=== PATIENT | female | born 1950 | race Caucasian/White ===

== ENCOUNTER → 2018-03-08 | Outpatient (CLI) | payer MEDICARE, OTHER ==
[~2018-03-08] MED LIST: BACL-19 PO; DICL100G19 TD; GABA-827 PO; HYDR25TA11 PO; LIDO700A5 TD; METH-356 PO; MIRT15TA4 PO; OXYC5TAB3 PO; TRAZ50TA18 PO; TRIA15CR3 TD; VITAMIN B12 PO
== END | disposition home or self-care (01) ==
LOC: CFH 10:35
PROVIDERS: ATTEND Nurse Practitioner
DX: Z12.2 Encounter for screening for malignant neoplasm of respiratory organs (principal); J84.10 Pulmonary fibrosis, unspecified; J44.9 Chronic obstructive pulmonary disease, unspecified; J96.11 Chronic respiratory failure with hypoxia; R91.8 Other nonspecific abnormal finding of lung field; F17.210 Nicotine dependence, cigarettes, uncomplicated
CPT/HCPCS: G0297

== ENCOUNTER 2018-06-25 12:22 | Inpatient (IN) | payer MEDICARE ==
[~2018-06-25] VITALS: Ht 160 cm; Wt 47.8 kg
[~2018-06-25 12:22] MED LIST changes: +TRAZ-136 PO; -TRAZ50TA18 PO
[2018-06-25 15:37] VITALS: BP 125/81
[2018-06-25] MEDS ORDERED: BUDE10.2 INH (15:59)
[2018-06-25] MEDS ORDERED: BISA5TAB PO (15:59)
[2018-06-25] MEDS ORDERED: TIOT18CA INH (15:59)
[2018-06-25] MEDS ORDERED: ALBUTEROL 0.083% NEB (15:59)
[2018-06-25] MEDS ORDERED: OXYcodone IR 5MG TABLET PO PRN (16:30)
[2018-06-25] MEDS ORDERED: ONDANSETRON ODT 4 MG PO PRN (16:30)
[2018-06-25] MEDS ORDERED: PLEASE ENTER HEIGHT AND WEIGHT MC SCH (16:30)
[2018-06-25] MEDS ORDERED: ONDANSETRON 2MG/ML, 2ML IVPush PRN (16:30)
[2018-06-25] MEDS ORDERED: PROM12.55 PO (16:45)
[2018-06-25] MEDS ORDERED: ALBU18HF IH (16:45)
[2018-06-25] MEDS ORDERED: triamcinolone 0.1% TP (16:45)
[2018-06-25] MEDS ORDERED: [UNRECOGNIZED DRUG - OTHER] TP (16:45)
[2018-06-25] MEDS ORDERED: ONDA4TAB12 PO (16:45)
[2018-06-25] MEDS ORDERED: NAPR-685 PO (16:45)
[2018-06-25] MEDS ORDERED: ALBUTEROL/IPRATROPIUM 2.5MG/0.5MG, 3 ML NPPB PRN (17:00)
[2018-06-25 17:20] LABS: BASOPHILS # (AUTO) 0.03 x10^3/uL (0-0.1); BASOPHILS % (AUTO) 1 % (0-1); EOSINOPHILS % (AUTO) 3 % (1-7); LYMPHOCYTES # (AUTO) 1.18 x10^3/uL (1-3.4); LYMPHOCYTES % (AUTO) 19 % (22-44); MD NO; MEAN CORPUSCULAR HEMOGLOBIN 35.8 pg (27.0-34.8); MEAN CORPUSCULAR HGB CONC 33.9 g/dL (32.4-35.8); MEAN CORPUSCULAR VOLUME 105.6 fL (80-100); MONOCYTES % (AUTO) 19 % (2-9); NEUTROPHILS # (AUTO) 3.65 x10^3/uL (1.8-6.8); NEUTROPHILS % (AUTO) 58 % (42-75); PLATELET COUNT 284 x10^3/uL (130-400); RED BLOOD COUNT 3.09 x10^6/uL (3.82-5.3); RED CELL DISTRIBUTION WIDTH 13.5 % (9.6-15.2)
[2018-06-25] MEDS: NICOTINE 7 MG/24 HR PATCH.TD24 TD SCH (17:20)
[2018-06-25] MEDS: OXYcodone IR 5MG TABLET PO PRN (17:28)
[2018-06-25 17:32] LABS: CHLORIDE 96 mmol/L (98-107)
[2018-06-25 17:33] LABS: ALANINE AMINOTRANSFERASE 27 U/L (12-78); ALBUMIN 2.9 g/dL (3.4-5.0); ANION GAP 8 mmol/L (5-15); CALCIUM 8.7 mg/dL (8.5-10.1); CREATININE 0.45 mg/dL (0.55-1.02)
[2018-06-25 17:35] LABS: ALKALINE PHOSPHATASE 80 U/L (45-117); BILIRUBIN,TOTAL 0.4 mg/dL (0.2-1.0); TOTAL PROTEIN 6.7 g/dL (6.4-8.2)
[2018-06-25] MEDS ORDERED: ALBUTEROL SULFATE 2.5 MG/3 ML NPPB PRN (18:30)
[2018-06-25] MEDS: morphine SULFATE 10 MG/ML, 1ML IVPush PRN ×2 (18:35→23:08)
[2018-06-25 20:00] VITALS: BP 120/74
[2018-06-25] MEDS: ALBUTEROL SULFATE 2.5 MG/3 ML NPPB SCH (21:00)
[2018-06-26 01:17] VITALS: BP 150/90
[2018-06-26] MEDS: OXYcodone IR 5MG TABLET PO PRN ×5 (01:42→18:40)
[2018-06-26] MEDS: morphine SULFATE 10 MG/ML, 1ML IVPush PRN ×5 (02:31→20:26)
[2018-06-26 05:28] LABS: BASOPHILS # (AUTO) 0.05 x10^3/uL (0-0.1); BASOPHILS % (AUTO) 1 % (0-1); EOSINOPHILS # (AUTO) 0.29 x10^3/uL (0-0.4); EOSINOPHILS % (AUTO) 4 % (1-7); LYMPHOCYTES # (AUTO) 1.49 x10^3/uL (1-3.4); LYMPHOCYTES % (AUTO) 19 % (22-44); MD NO; MEAN CORPUSCULAR HEMOGLOBIN 35.5 pg (27.0-34.8); MEAN CORPUSCULAR HGB CONC 33.9 g/dL (32.4-35.8); MEAN CORPUSCULAR VOLUME 104.9 fL (80-100); MEAN PLATELET VOLUME 8.8 fL (7.4-10.4); MONOCYTES # (AUTO) 1.36 x10^3/uL (0.2-0.8); MONOCYTES % (AUTO) 18 % (2-9); NEUTROPHILS # (AUTO) 4.56 x10^3/uL (1.8-6.8); NEUTROPHILS % (AUTO) 59 % (42-75); PLATELET COUNT 269 x10^3/uL (130-400); RED BLOOD COUNT 3.04 x10^6/uL (3.82-5.3); RED CELL DISTRIBUTION WIDTH 13.8 % (9.6-15.2)
[2018-06-26 05:31] LABS: ALANINE AMINOTRANSFERASE 26 U/L (12-78); ALBUMIN 2.9 g/dL (3.4-5.0); ANION GAP 5 mmol/L (5-15); CALCIUM 8.5 mg/dL (8.5-10.1); CHLORIDE 97 mmol/L (98-107)
[2018-06-26 05:34] LABS: ALKALINE PHOSPHATASE 72 U/L (45-117); BILIRUBIN,TOTAL 0.3 mg/dL (0.2-1.0); CREATININE 0.44 mg/dL (0.55-1.02); TOTAL PROTEIN 6.2 g/dL (6.4-8.2)
[2018-06-26 07:07] VITALS: BP 125/81
[2018-06-26] MEDS: ALBUTEROL SULFATE 2.5 MG/3 ML NPPB SCH ×3 (10:01→19:46)
[2018-06-26] MEDS ORDERED: OMNIPAQUE 350 MG/ML, 75ML BOTTLE ONE (12:20)
[2018-06-26 12:58] VITALS: BP 116/77
[2018-06-26] MEDS: NICOTINE 7 MG/24 HR PATCH.TD24 TD SCH (14:55)
[2018-06-26 20:00] VITALS: BP 132/87
[2018-06-26] MEDS: TRAZODONE 50MG TABLET PO PRN (20:26)
[2018-06-27] MEDS: morphine SULFATE 10 MG/ML, 1ML IVPush PRN ×6 (00:58→23:06)
[2018-06-27 02:39] VITALS: BP 118/77
[2018-06-27] MEDS: OXYcodone IR 5MG TABLET PO PRN ×5 (02:41→20:25)
[2018-06-27] MEDS: TRAZODONE 50MG TABLET PO PRN ×3 (02:41→23:06)
[2018-06-27 05:32] LABS: BASOPHILS # (AUTO) 0.04 x10^3/uL (0-0.1); BASOPHILS % (AUTO) 1 % (0-1); EOSINOPHILS # (AUTO) 0.29 x10^3/uL (0-0.4); EOSINOPHILS % (AUTO) 4 % (1-7); LYMPHOCYTES # (AUTO) 1.26 x10^3/uL (1-3.4); LYMPHOCYTES % (AUTO) 18 % (22-44); MD NO; MEAN CORPUSCULAR HEMOGLOBIN 35.1 pg (27.0-34.8); MEAN CORPUSCULAR HGB CONC 33.6 g/dL (32.4-35.8); MEAN CORPUSCULAR VOLUME 104.6 fL (80-100); MEAN PLATELET VOLUME 8.7 fL (7.4-10.4); MONOCYTES # (AUTO) 1.21 x10^3/uL (0.2-0.8); MONOCYTES % (AUTO) 18 % (2-9); NEUTROPHILS # (AUTO) 4.11 x10^3/uL (1.8-6.8); NEUTROPHILS % (AUTO) 60 % (42-75); PLATELET COUNT 265 x10^3/uL (130-400); RED BLOOD COUNT 2.94 x10^6/uL (3.82-5.3); RED CELL DISTRIBUTION WIDTH 13.6 % (9.6-15.2)
[2018-06-27 06:02] LABS: ALBUMIN 2.8 g/dL (3.4-5.0); CALCIUM 8.7 mg/dL (8.5-10.1); CHLORIDE 100 mmol/L (98-107)
[2018-06-27 06:05] LABS: ANION GAP 9 mmol/L (5-15); CREATININE 0.49 mg/dL (0.55-1.02)
[2018-06-27 06:49] VITALS: BP 126/77
[2018-06-27] MEDS: ALBUTEROL SULFATE 2.5 MG/3 ML NPPB SCH ×3 (07:10→20:39)
[2018-06-27 14:02] VITALS: BP 133/81
[2018-06-27] MEDS: NICOTINE 7 MG/24 HR PATCH.TD24 TD SCH (16:30)
[2018-06-27 20:00] VITALS: BP 139/84
[2018-06-28] MEDS: OXYcodone IR 5MG TABLET PO PRN ×4 (02:25→14:43)
[2018-06-28 02:26] VITALS: BP 134/81
[2018-06-28] MEDS: morphine SULFATE 10 MG/ML, 1ML IVPush PRN ×3 (04:34→12:45)
[2018-06-28 07:41] VITALS: BP 114/79
[2018-06-28] MEDS: ALBUTEROL SULFATE 2.5 MG/3 ML NPPB SCH ×2 (09:35→15:15)
[2018-06-28 12:53] VITALS: BP 122/80
== END 2018-06-28 17:02 | disposition home or self-care (01) | DRG 199 ==
LOC: 5SO 15:22 → DCLOUNGE 06-28 16:40
PROVIDERS: ADMIT Hospitalist; ATTEND Hospitalist
PROC: 0WP8X0Z Removal of Drainage Device from Chest Wall, External Approach (ICD-10-PCS; principal; 2018-06-28)
DX: J95.811 Postprocedural pneumothorax (principal); J96.01 Acute respiratory failure with hypoxia; E43 Unspecified severe protein-calorie malnutrition; Z68.1 Body mass index [BMI] 19.9 or less, adult; T79.7XXA Traumatic subcutaneous emphysema, initial encounter; D64.9 Anemia, unspecified; F17.200 Nicotine dependence, unspecified, uncomplicated; G89.29 Other chronic pain; G43.909 Migraine, unspecified, not intractable, without status migrainosus; M54.9 Dorsalgia, unspecified; J98.6 Disorders of diaphragm; G47.00 Insomnia, unspecified; J44.9 Chronic obstructive pulmonary disease, unspecified; Z79.891 Long term (current) use of opiate analgesic; Z82.3 Family history of stroke; Z82.49 Family history of ischemic heart disease and other diseases of the circulatory system; Z82.5 Family history of asthma and other chronic lower respiratory diseases; Z99.81 Dependence on supplemental oxygen
CPT/HCPCS: 36415; 71045; 71260; 80048; 80053; 82040; 85025; 94640; G0378; J7613; Q9967; J2270

== ENCOUNTER → 2018-07-13 | Outpatient (CLI) | payer MEDICARE ==
[~2018-07-13] MED LIST changes: +ALBU18HF IH; +ALBUTEROL 0.083% NEB; +BISA5TAB PO; +BUDE10.2 INH; +NAPR-685 PO; +ONDA4TAB12 PO; +PROM12.55 PO; +TIOT18CA INH; +[UNRECOGNIZED DRUG - OTHER] TP; +triamcinolone 0.1% TP
== END | disposition home or self-care (01) ==
LOC: PETCFH 07:30
PROVIDERS: ATTEND Internal Medicine
DX: R91.1 Solitary pulmonary nodule (principal); R59.0 Localized enlarged lymph nodes; J44.9 Chronic obstructive pulmonary disease, unspecified
CPT/HCPCS: 78815; A9552

== ENCOUNTER 2018-08-03 07:49 | Day surgery (SDC) | payer MEDICARE ==
[~2018-08-03] VITALS: Ht 157.5 cm; Wt 43.9 kg
[~2018-08-03 07:49] MED LIST changes: +ALBUTEROL/IPRATROPIUM 2.5MG/0.5MG, 3 ML NPPB PRN; +EPHEDRINE 50 MG/ML, 1ML IM PRN; +EPHEDRINE 50 MG/ML, 1ML IVPush PRN; +FENTANYL PF 100 MCG/2ML IV PRN; +HYDROcodone/APAP 7.5-325MG/15ML UDC PO PRN; +HYDROmorphone 2 MG/ML, 1ML IVPush PRN; +KETOROLAC 30 MG/1 ML IV PRN; +LABETALOL 5MG/ML, 20ML IV PRN; +MEPERIDINE/PF 25MG/0.5ML IVPush PRN; -METH-356 PO; +METH10TA2 PO; +METOCLOPRAMIDE 5 MG/ML, 2ML IV PRN; +MIDAZOLAM 1 MG/ML, 2ML IV PRN; +NAPR500T8 PO; +ONDANSETRON 2MG/ML, 2ML IV PRN; +Oxygen INH; -TRAZ-136 PO; +TRAZ50TA66 PO
[2018-08-03] MEDS ORDERED: LACTATED RINGERS 1,000 ML IV SCH (08:37)
[2018-08-03] MEDS ORDERED: MIDAZOLAM 1 MG/ML, 2ML ONE (08:48)
[2018-08-03] MEDS ORDERED: ROCURONIUM 10MG/ML,5ML ONE (08:48)
[2018-08-03] MEDS ORDERED: LIDOCAINE 2%, 10ML ONE (08:48)
[2018-08-03] MEDS ORDERED: PROPOFOL 10 MG/ML, 20ML ONE (08:48)
[2018-08-03] MEDS ORDERED: GLYCOPYRROLATE 0.2MG/1ML, 5ML ONE (08:48)
[2018-08-03] MEDS ORDERED: DEXAMETHASONE 4 MG/ML, 1ML ONE (08:48)
[2018-08-03] MEDS ORDERED: FENTANYL PF 250 MCG/5ML ONE (08:49)
[2018-08-03] MEDS ORDERED: LIDOCAINE-MPF 2% ,5ML ONE (08:56)
[2018-08-03 09:02] VITALS: BP 108/70
== END 2018-08-03 13:00 | disposition home or self-care (01) ==
LOC: OUT 07:49
PROVIDERS: ATTEND Internal Medicine Critical Care Medicine
DX: C96.9 Malignant neoplasm of lymphoid, hematopoietic and related tissue, unspecified (principal); J44.9 Chronic obstructive pulmonary disease, unspecified; J96.11 Chronic respiratory failure with hypoxia; Z79.899 Other long term (current) drug therapy; Z88.8 Allergy status to other drugs, medicaments and biological substances; Z72.0 Tobacco use
CPT/HCPCS: 31652; 88172; 88173; 88305; 88341; 88342; 93005; J1100; J2001; J2250; J2704; J3010; J3490; J7120; 31625; 31629

== ENCOUNTER → 2018-08-18 | Outpatient (CLI) | payer MEDICARE ==
[~2018-08-18] MED LIST changes: -ALBUTEROL/IPRATROPIUM 2.5MG/0.5MG, 3 ML NPPB PRN; -EPHEDRINE 50 MG/ML, 1ML IM PRN; -EPHEDRINE 50 MG/ML, 1ML IVPush PRN; -FENTANYL PF 100 MCG/2ML IV PRN; +GADOBUTROL 7.5 MMOL/7.5 ML PFS ONE; -HYDROcodone/APAP 7.5-325MG/15ML UDC PO PRN; -HYDROmorphone 2 MG/ML, 1ML IVPush PRN; -KETOROLAC 30 MG/1 ML IV PRN; -LABETALOL 5MG/ML, 20ML IV PRN; -MEPERIDINE/PF 25MG/0.5ML IVPush PRN; +METH-356 PO; -METH10TA2 PO; -METOCLOPRAMIDE 5 MG/ML, 2ML IV PRN; -MIDAZOLAM 1 MG/ML, 2ML IV PRN; -ONDANSETRON 2MG/ML, 2ML IV PRN
== END | disposition home or self-care (01) ==
LOC: RAD 08:50
PROVIDERS: ATTEND Internal Medicine
DX: H70.93 Unspecified mastoiditis, bilateral (principal); R90.82 White matter disease, unspecified
CPT/HCPCS: 70553; A9585

== ENCOUNTER → 2018-10-10 | Outpatient (CLI) | payer MEDICARE ==
[~2018-10-10] MED LIST changes: -GADOBUTROL 7.5 MMOL/7.5 ML PFS ONE; -METH-356 PO; +METH10TA2 PO
== END | disposition home or self-care (01) ==
LOC: CFH 10:43
PROVIDERS: ATTEND Radiology Radiation Oncology
DX: M41.84 Other forms of scoliosis, thoracic region (principal); R06.02 Shortness of breath; R05 Cough; Z85.118 Personal history of other malignant neoplasm of bronchus and lung
CPT/HCPCS: 71046

== ENCOUNTER 2018-11-11 07:16 | Outpatient (CLI) | payer MEDICARE | END 2018-11-11 23:59 | disposition home or self-care (01) | LOC: ROC 07:16 → EDSTATUS 08-22 17:20 | PROVIDERS: ATTEND Radiology Radiation Oncology | DX: Z08 Encounter for follow-up examination after completed treatment for malignant neoplasm (principal); C34.11 Malignant neoplasm of upper lobe, right bronchus or lung | CPT/HCPCS: 99212; G0463 ==

== ENCOUNTER → 2018-11-21 | Outpatient (CLI) | payer MEDICARE ==
[~2018-11-21] MED LIST changes: +OMNIPAQUE 350 MG/ML, 75ML BOTTLE ONE
== END | disposition home or self-care (01) ==
LOC: CFH 12:24
PROVIDERS: ATTEND Internal Medicine Hematology & Oncology
DX: J43.2 Centrilobular emphysema (principal); C34.11 Malignant neoplasm of upper lobe, right bronchus or lung; Z87.891 Personal history of nicotine dependence
CPT/HCPCS: 71260; Q9967

== ENCOUNTER → 2018-12-26 | Outpatient (CLI) | payer MEDICARE ==
[~2018-12-26] MED LIST changes: -OMNIPAQUE 350 MG/ML, 75ML BOTTLE ONE; -TRIA15CR3 TD; +TRIA15CR61 TD
== END | disposition home or self-care (01) ==
LOC: EDSTATUS 11-22 14:55 → ROC 08:13
PROVIDERS: ATTEND Radiology Radiation Oncology
DX: C34.91 Malignant neoplasm of unspecified part of right bronchus or lung (principal); C77.1 Secondary and unspecified malignant neoplasm of intrathoracic lymph nodes; J43.9 Emphysema, unspecified; R91.1 Solitary pulmonary nodule; Z79.899 Other long term (current) drug therapy; Z87.891 Personal history of nicotine dependence; Z92.3 Personal history of irradiation
CPT/HCPCS: 99212; G0463

== ENCOUNTER → 2019-02-17 | Outpatient (CLI) | payer MEDICARE ==
[~2019-02-17] MED LIST changes: +OXYC10TA47 PO
== END | disposition home or self-care (01) ==
LOC: CFH 09:59
PROVIDERS: ATTEND Internal Medicine
DX: D02.20 Carcinoma in situ of unspecified bronchus and lung (principal)
CPT/HCPCS: 71250

== ENCOUNTER 2019-03-27 08:29 | Outpatient (CLI) | payer MEDICARE | END 2019-03-27 23:59 | disposition home or self-care (01) | LOC: ROC 08:29 | PROVIDERS: ATTEND Radiology Radiation Oncology | DX: C34.11 Malignant neoplasm of upper lobe, right bronchus or lung (principal); J44.9 Chronic obstructive pulmonary disease, unspecified | CPT/HCPCS: 99213; G0463 ==

== ENCOUNTER → 2019-06-20 | Outpatient (CLI) | payer MEDICARE ==
[~2019-06-20] VITALS: Ht 160 cm; Wt 42.4 kg
[~2019-06-20] MED LIST changes: +DURVALUMAB IV ONE; +FILTER MICRON IV ONE; +HYDR-826 PO; -HYDR25TA11 PO; +MIRT-34 PO; -MIRT15TA4 PO; -PROM12.55 PO; +PROM12.57 PO; +SODIUM CHLORIDE 0.9% 100 ML IV ONE; +SODIUM CHLORIDE 0.9% IV ONE
[2019-06-20 11:14] VITALS: BP 102/63
== END | disposition home or self-care (01) ==
LOC: INFUSION 08:00
PROVIDERS: ATTEND Internal Medicine Hematology & Oncology
DX: Z51.11 Encounter for antineoplastic chemotherapy (principal); C34.11 Malignant neoplasm of upper lobe, right bronchus or lung; R94.6 Abnormal results of thyroid function studies; I25.10 Atherosclerotic heart disease of native coronary artery without angina pectoris; J43.9 Emphysema, unspecified
CPT/HCPCS: 36415; 84443; 96413; J7050; J9173

== ENCOUNTER → 2019-07-04 | Outpatient (CLI) | payer MEDICARE ==
[~2019-07-04] VITALS: Ht 160 cm; Wt 42.8 kg
[~2019-07-04] MED LIST changes: +FILTER 0.22 MICRON IV ONE; -FILTER MICRON IV ONE; -SODIUM CHLORIDE 0.9% 100 ML IV ONE; +SODIUM CHLORIDE 0.9% 100 ML IV SCH
[2019-07-04 12:25] VITALS: BP 107/69
== END | disposition home or self-care (01) ==
LOC: INFUSION 10:12
PROVIDERS: ATTEND Internal Medicine Hematology & Oncology
DX: Z51.11 Encounter for antineoplastic chemotherapy (principal); C34.11 Malignant neoplasm of upper lobe, right bronchus or lung; J43.9 Emphysema, unspecified; I25.10 Atherosclerotic heart disease of native coronary artery without angina pectoris; R94.6 Abnormal results of thyroid function studies
CPT/HCPCS: 36415; 36591; 84443; 96413; J7050; J9173

== ENCOUNTER 2019-07-08 06:46 | Emergency (ER) | payer MEDICARE ==
[~2019-07-08] VITALS: Ht 160 cm; Wt 44.2 kg
[~2019-07-08 06:46] MED LIST changes: -DURVALUMAB IV ONE; -FILTER 0.22 MICRON IV ONE; -SODIUM CHLORIDE 0.9% 100 ML IV SCH; -SODIUM CHLORIDE 0.9% IV ONE
[2019-07-08] MEDS ORDERED: ALBUTEROL/IPRATROPIUM 2.5MG/0.5MG, 3 ML NPPB SCH (07:30)
[2019-07-08] MEDS ORDERED: SODIUM CHLORIDE FLUSH 10ML SYR IVF ONE (07:30)
[2019-07-08] MEDS ORDERED: ONDANSETRON 2MG/ML, 2ML ONE (07:47)
[2019-07-08] MEDS ORDERED: MORPHINE SULFATE 4 MG/ML, 1ML ONE (07:48)
[2019-07-08 07:49] LABS: BASOPHILS # (AUTO) 0.04 x10^3/uL (0-0.1); BASOPHILS % (AUTO) 1 % (0-1); EOSINOPHILS # (AUTO) 0.13 x10^3/uL (0-0.4); EOSINOPHILS % (AUTO) 2 % (1-7); LYMPHOCYTES # (AUTO) 0.37 x10^3/uL (1-3.4); LYMPHOCYTES % (AUTO) 6 % (22-44); MD NO; MEAN CORPUSCULAR HEMOGLOBIN 32.6 pg (27.0-34.8); MEAN CORPUSCULAR HGB CONC 32.3 g/dL (32.4-35.8); MEAN CORPUSCULAR VOLUME 100.9 fL (80-100); MEAN PLATELET VOLUME 6.6 fL (7.4-10.4); MONOCYTES # (AUTO) 0.93 x10^3/uL (0.2-0.8); MONOCYTES % (AUTO) 15 % (2-9); NEUTROPHILS # (AUTO) 4.95 x10^3/uL (1.8-6.8); NEUTROPHILS % (AUTO) 77 % (42-75); PLATELET COUNT 367 x10^3/uL (130-400); RED BLOOD COUNT 3.39 x10^6/uL (3.82-5.3)
[2019-07-08] MEDS ORDERED: ALBUTEROL/IPRATROPIUM 2.5MG/0.5MG, 3 ML ONE (07:57)
[2019-07-08] MEDS ORDERED: MORPHINE SULFATE 4 MG/ML, 1ML IVPush PRN (08:00)
[2019-07-08] MEDS ORDERED: ONDANSETRON 2MG/ML, 2ML IVPush ONE (08:00)
[2019-07-08 08:01] LABS: ALBUMIN 2.9 g/dL (3.4-5.0); ANION GAP 5 mmol/L (5-15); CALCIUM 8.4 mg/dL (8.5-10.1); CHLORIDE 98 mmol/L (98-107)
[2019-07-08 08:07] LABS: ALANINE AMINOTRANSFERASE 13 U/L (12-78); ALKALINE PHOSPHATASE 84 U/L (45-117); BILIRUBIN,TOTAL 0.3 mg/dL (0.2-1.0); CREATININE 0.46 mg/dL (0.55-1.02); TOTAL PROTEIN 6.7 g/dL (6.4-8.2); TROPONIN I < 0.015 ng/mL (0.000-0.045)
[2019-07-08] MEDS ORDERED: DIAZEPAM 5 MG TABLET PO ONE (09:00)
[2019-07-08] MEDS ORDERED: KETOROLAC 30 MG/1 ML IVPush ONE (09:00)
--- NOTE | 2019-07-08 09:07 | NUR ---
Pt transported on [facility] to [place].
[2019-07-08] MEDS ORDERED: OMNIPAQUE 350 MG/ML, 100ML BOTTLE ONE (09:25)
[2019-07-08] MEDS ORDERED: KETOROLAC 30 MG/1 ML ONE (09:30)
[2019-07-08] MEDS ORDERED: DIAZEPAM 5 MG TABLET ONE (09:30)
[2019-07-08 09:37] VITALS: BP 104/69
--- NOTE | 2019-07-08 10:55 | NUR ---
Patient and caregiver given discharge instructions and they have confirmed that they understand the instructions. Patient pushed in wheelchair to discharge desk. NADN. No needs expressed. Pt left with d/c paperwork, prescription, and all personal belongings.
== END 2019-07-08 11:01 | disposition home or self-care (01) ==
LOC: ED 07:41
DX: R07.1 Chest pain on breathing (principal); R06.00 Dyspnea, unspecified; R05 Cough; R06.2 Wheezing; R50.9 Fever, unspecified; Z87.891 Personal history of nicotine dependence; Z85.118 Personal history of other malignant neoplasm of bronchus and lung
CPT/HCPCS: 36415; 71045; 71275; 80053; 84484; 85025; 93005; 94640; 96374; 96375; 99284; J1885; J2270; J2405; J7620; Q9967

== ENCOUNTER 2019-07-17 10:38 | Emergency (ER) | payer MEDICARE ==
[~2019-07-17] VITALS: Ht 160 cm; Wt 42.0 kg
--- NOTE | 2019-07-17 11:27 | NUR ---
[facility] PT HAS HX ACTIVE STAGE 3 LUNG CANCER, UNDERGOING IVIG THERAPY, PREVIOUS HX CHEMO AND RADIATION. PT STATES "BODY ACHES AND COUGH X 2 WEEKS, COUGHING UP WHITE STUFF." LUNG SOUNDS ARE COARSE, PT WEARING 4L NC (HOME O2 DOSE). PT DRESSED IN GOWN AND ON ALL MONITORS. EKG COMPLETED. PIV ESTABLISHED AND LABS DRAWN. WARM BLANKETS AND BEAR HUGGER FOR COMFORT. PT AAO X 4, FREQUENT, WET, WEAK, AND NON-PRODUCTIVE COUGH NOTED. MD AT BEDSIDE FOR ASSESSMENT.
[2019-07-17] MEDS ORDERED: SODIUM CHLORIDE FLUSH 10ML SYR IVF ONE (11:30)
[2019-07-17] MEDS ORDERED: SODIUM CHLORIDE 0.9% 1,000ML IVBOLUS ONE (11:30)
[2019-07-17 11:52] LABS: BASOPHILS # (AUTO) 0.03 x10^3/uL (0-0.1); BASOPHILS % (AUTO) 1 % (0-1); EOSINOPHILS # (AUTO) 0.03 x10^3/uL (0-0.4); EOSINOPHILS % (AUTO) 0 % (1-7); LYMPHOCYTES # (AUTO) 0.36 x10^3/uL (1-3.4); LYMPHOCYTES % (AUTO) 5 % (22-44); MD NO; MEAN CORPUSCULAR HEMOGLOBIN 32.6 pg (27.0-34.8); MEAN CORPUSCULAR HGB CONC 32.8 g/dL (32.4-35.8); MEAN CORPUSCULAR VOLUME 99.5 fL (80-100); MEAN PLATELET VOLUME 7.4 fL (7.4-10.4); MONOCYTES # (AUTO) 0.96 x10^3/uL (0.2-0.8); MONOCYTES % (AUTO) 14 % (2-9); NEUTROPHILS # (AUTO) 5.56 x10^3/uL (1.8-6.8); NEUTROPHILS % (AUTO) 80 % (42-75); PLATELET COUNT 461 x10^3/uL (130-400); RED BLOOD COUNT 3.54 x10^6/uL (3.82-5.3); RED CELL DISTRIBUTION WIDTH 12.5 % (9.6-15.2)
[2019-07-17 11:53] LABS: INTERNATIONAL NORMALIZED RATIO 1.01 (0.93-1.1); PROTHROMBIN TIME 10.6 Seconds (9.6-11.5)
--- NOTE | 2019-07-17 11:55 | NUR ---
LAB AND XRAY AT BEDSIDE.
--- NOTE | 2019-07-17 12:07 | NUR ---
PT MEDICATED PER ORDER.
[2019-07-17] MEDS ORDERED: ALBUTEROL/IPRATROPIUM 2.5MG/0.5MG, 3 ML ONE (12:13)
[2019-07-17 12:16] LABS: ALBUMIN 2.6 g/dL (3.4-5.0); ANION GAP 4 mmol/L (5-15); CALCIUM 9.2 mg/dL (8.5-10.1); CHLORIDE 96 mmol/L (98-107)
[2019-07-17 12:23] LABS: ALANINE AMINOTRANSFERASE 9 U/L (12-78); ALKALINE PHOSPHATASE 82 U/L (45-117); BILIRUBIN,TOTAL 0.4 mg/dL (0.2-1.0); CREATININE 0.56 mg/dL (0.55-1.02); TOTAL PROTEIN 7.2 g/dL (6.4-8.2); TROPONIN I < 0.015 ng/mL (0.000-0.045)
--- NOTE | 2019-07-17 12:49 | NUR ---
LAB AT BEDSIDE. THIS RN CALLED CT REGARDING DELAY IN SCAN, PER CT, PT NEXT ON LIST.
--- NOTE | 2019-07-17 12:58 | NUR ---
PT TO CT.
--- NOTE | 2019-07-17 13:15 | NUR ---
PT BACK FROM CT, LAB NOTIFIED.
[2019-07-17] MEDS ORDERED: OMNIPAQUE 350 MG/ML, 75ML BOTTLE ONE (13:29)
--- NOTE | 2019-07-17 13:36 | NUR ---
LAB AT BEDSIDE FOR LAB REDRAW.
[2019-07-17 13:49] LABS: RAPID INFLUENZA A Negative (Negative); RAPID INFLUENZA B Negative (Negative)
--- NOTE | 2019-07-17 13:51 | NUR ---
ALL RESULTS BACK AT THIS TIME, CHART UP FOR RECHECK. MD TO BEDSIDE TO DISCUSS POC.
[2019-07-17] MEDS ORDERED: OXYcodone 5 MG/5 ML ORAL.SOL UDC ONE (13:53)
--- NOTE | 2019-07-17 13:54 | NUR ---
PT MEDICATED WITH PAIN MEDS PER ORDER.
[2019-07-17 13:55] VITALS: BP 110/72
[2019-07-17] MEDS ORDERED: OXYcodone 5 MG/5 ML ORAL.SOL UDC PO PRN (14:00)
--- NOTE | 2019-07-17 14:23 | NUR ---
[facility] AT BEDSIDE.
--- NOTE | 2019-07-17 14:33 | NUR ---
BREAK RN: PATIENT MEDICATED PER EMAR, TOLERATED WELL. DENIES FURTHER NEEDS AT THIS TIME.
--- NOTE | 2019-07-17 15:41 | NUR ---
Patient/Caregiver given discharge instructions and they have confirmed that they understand the instructions. Patient ambulatory with steady gait. PIV REMOVED TIP INTACT.
== END 2019-07-17 15:51 | disposition home or self-care (01) ==
LOC: ED 14:09 → UNDOADMIN 14:21 → EDIP 14:21 → ED 15:51
DX: J43.9 Emphysema, unspecified (principal); G89.29 Other chronic pain; C34.90 Malignant neoplasm of unspecified part of unspecified bronchus or lung; Z51.11 Encounter for antineoplastic chemotherapy; Z87.891 Personal history of nicotine dependence
CPT/HCPCS: 36415; 36600; 71045; 71275; 80053; 82803; 83605; 83880; 84145; 84484; 85025; 85610; 87040; 87400; 93005; 94640; 99291; J7030; J7512; Q9967

== ENCOUNTER → 2019-09-04 | Outpatient (CLI) | payer MEDICARE ==
[~2019-09-04] MED LIST changes: +AMOX1TAB12 PO; +DOXY100T PO; +DULO30CA2 PO; +GABA300C10 PO
== END | disposition home or self-care (01) ==
LOC: CFH 13:54
PROVIDERS: ATTEND Radiology Radiation Oncology
DX: C34.11 Malignant neoplasm of upper lobe, right bronchus or lung (principal); J43.9 Emphysema, unspecified; J90 Pleural effusion, not elsewhere classified; R91.8 Other nonspecific abnormal finding of lung field
CPT/HCPCS: 71250